=== PATIENT | female | born 1965 | race American Indian/Alaskan Native ===

== ENCOUNTER 2016-10-21 15:31 | Emergency (ER) | payer MEDICARE ==
--- NOTE | 2016-10-21 19:24 | Emergency Department Report ---
Abscess Boil HPI - HPI Chief Complaint: Skin/Abscess/Foreign Body Stated Complaint: BOIL RT UNDERARM Time Seen by Provider: 10/21/16 19:18 Duration: 1 Day Location: Other (right armpit) Severity: Mild History: Yes Pain, Yes Purulent Drainage (mild), No Fever, No Numbness, No Foreign Body, No Previous History, No Insect Bite HPI: 51-year-old female comes in complaining of a boil under her right armpit. Patient reports she has a past medical history of ball since age of 20-23. Patient does elicit that [facility] She sees Dr. Pierre which comes to the [place] to visit as well as his associated with [facility]. She denies any fever no nausea no vomiting no chills. She did report she put coconut butter which then had it drained some. Home Medications: Previous Rx's Medication Instructions Recorded Last Taken Type Cephalexin [Keflex] 500 mg PO BID #20 capsule 10/21/16 Unknown Rx Ibuprofen [Motrin 600 MG tab] 600 mg PO Q8H PRN #30 tablet 10/21/16 Unknown Rx Allergies/Adverse Reactions: Allergies Allergy/AdvReac Type Severity Reaction Status Date / Time No Known Allergies Allergy Unverified 10/21/16 17:05 ED Review of Systems ROS: Stated complaint: BOIL RT UNDERARM Other details as noted in HPI Skin: as per HPI, other (boil rt armpit) ED Past Medical Hx - Medications Home Medications: Home Medications Medication Instructions Recorded Confirmed Last Taken Type Cephalexin [Keflex] 500 mg PO BID #20 capsule 10/21/16 Unknown Rx Ibuprofen [Motrin 600 MG tab] 600 mg PO Q8H PRN #30 tablet 10/21/16 Unknown Rx ED Abscess Boil Physical Exam - Exam General: Vital signs noted. No distress. Alert and acting appropriately. Front/Back of Body, Lg (Color): 1 - rt axilary 1 cm no flucuant mild tender without indurantion Size: 1 cm Exam: No Fluctuance, No Surrounding Cellulites/Erythema, No Lymphangitis, No Crepitation, No Heart Murmur ED Course Vital Signs 10/21/16 17:05 Temperature 98.4 F Pulse Rate 55 L Blood Pressure 144/76 O2 Sat by Pulse 100 Oximetry Critical care attestation.: If time is entered above; I have spent that time in minutes in the direct care of this critically ill patient, excluding procedure time. ED Medical Decision Making - Medical Decision Making Patient's been evaluated by this provider in fast track. Based on physical examination and history this boil does not need to be lanced at this time. Discussed with patient and will place her antibiotics and have her use warm compresses to bring the boil to her head. She can then return to the emergency room for Claire. Verbalized understanding. Opportunity to she asked questions. ED Disposition Clinical Impression: Boil, axilla Disposition: DISCHARGED TO HOME OR SELFCARE Is pt being admited?: No Does the pt Need Aspirin: No Condition: Stable Instructions: Furunculosis and Carbunculosis (ED) Additional Instructions: Complete all antibiotics as prescribed and use ibuprofen for pain management. Support for you to follow up with your primary care provider or return back to the emergency room if the boil gets worse or does not improve in 3-5 days. Prescriptions: Cephalexin [Keflex] 500 mg PO BID #20 capsule Ibuprofen [Motrin 600 MG tab] 600 mg PO Q8H PRN #30 tablet PRN Reason: Pain Referrals: RUPAL PIERRE MD [Staff Physician] - 3-5 Days
[2016-10-21 19:57] VITALS: BP 126/85
== END 2016-10-21 19:55 | disposition home or self-care (01) ==
LOC: ED 15:31
DX: L02.423 Furuncle of right upper limb (principal)
CPT/HCPCS: 99282